=== PATIENT | female | born 1980 | race Hispanic/Latino ===

== ENCOUNTER 2020-03-15 05:20 | Outpatient (CLI) | payer OTHER, SELFPAY ==
[2020-03-15 16:46] LABS: Hemoglobin 13.5 g/dL (12.0-16.0); Mean Corpuscular HGB CONC 34.2 g/dL (32.0-36.0); Mean Corpuscular Hemoglobin 32.5 pg (27.0-31.0); Mean Corpuscular Volume 95.1 fL (78.0-98.0); Mean Platelet Volume 6.8 fL (7.4-10.4); Platelet Count 356 thou/uL (130-400); RBC Distribution Width 11.7 % (11.5-14.5); Red Blood Cell (RBC) Count 4.15 mill/uL (4.20-5.40); White Blood Cell (WBC) Count 6.4 thou/uL (4.8-10.8)
[2020-03-15 17:01] LABS: BHCG - Serum Negative (NEGATIVE); Pregs Control Background? CLEAR/WHITE (CLR/WHITE); Pregs Control Bar Appear? YES (CONTROL BAR)
[2020-03-16 12:36] LABS: SARS-CoV-2 MS2 Positive; SARS-CoV-2 N Gene Negative; SARS-CoV-2 S Gene Negative; SARS-CoV-2 orf1ab Negative
== END 2020-03-15 05:21 | disposition home or self-care (01) ==
LOC: LABBT 05:20
PROVIDERS: ATTEND Obstetrics & Gynecology
DX: Z01.812 Encounter for preprocedural laboratory examination (principal); Z11.59 Encounter for screening for other viral diseases; D21.9 Benign neoplasm of connective and other soft tissue, unspecified; N92.0 Excessive and frequent menstruation with regular cycle; D64.9 Anemia, unspecified
CPT/HCPCS: 84703; 85027; 86850; 86900; 86901; 87635; U0003

== ENCOUNTER 2020-03-19 10:08 | Day surgery (SDC) | payer OTHER ==
[2020-03-14 11:33] VITALS: BMI 35.2
[2020-03-19] MEDS ORDERED: Famotidine/PF 20 mg/2ml Vial ONE (10:34)
[2020-03-19] MEDS ORDERED: Gabapentin 300 MG CAP ONE (10:34)
[2020-03-19] MEDS ORDERED: CeleCOXIB 100 MG CAP ONE (10:34)
[2020-03-19] MEDS ORDERED: Lidocaine 1% w/Epinephrine 1:100K 20 ML VIAL ONE (10:51)
[2020-03-19] MEDS ORDERED: Bupivacaine PF 0.5% 30 ML VIAL ONE (10:51)
[2020-03-19] MEDS ORDERED: Fentanyl 250 MCG/5 ML VIAL ONE (11:50)
[2020-03-19] MEDS ORDERED: Midazolam HCl 2 mg/2 ml Vial ONE ×2 (11:50→12:06)
[2020-03-19] MEDS ORDERED: PROPOFOL 200 MG/20 ML VIAL ONE (13:17)
[2020-03-19] MEDS ORDERED: Ondansetron PF 4 MG/2 ML Vial ONE (13:17)
[2020-03-19] MEDS ORDERED: PHENYLEPHRINE-NS 100 MCG/ML 10 ML SYRINGE ONE (13:17)
[2020-03-19] MEDS ORDERED: Rocuronium Bromide 10 MG/ML (10ML VIAL) ONE (13:17)
[2020-03-19] MEDS ORDERED: Lidocaine 1% PF 5 ML VIAL ONE (13:17)
[2020-03-19] MEDS ORDERED: Glycopyrrolate 0.2 MG/ML 5 ML SYRINGE ONE (13:17)
[2020-03-19] MEDS ORDERED: Dexamethasone 20 MG/5 ML VIAL ONE (13:17)
[2020-03-19] MEDS ORDERED: Ketorolac Tromethamine 30 MG/ML VIAL ONE (13:17)
[2020-03-19] MEDS ORDERED: Ondansetron PF 4 MG/2 ML Vial IVP PRN (14:12)
[2020-03-19] MEDS ORDERED: Simethicone Chewable 80 MG TAB PO PRN (14:12)
[2020-03-19] MEDS ORDERED: diphenhydrAMINE 25 MG CAP PO PRN (14:12)
[2020-03-19] MEDS ORDERED: traMADol HCl 50 MG TAB PO PRN (14:12)
[2020-03-19] MEDS ORDERED: HYDROcodone/Acetaminophen 5/325 mg Tablet PO PRN (14:12)
[2020-03-19] MEDS ORDERED: Morphine 4 MG/ML VIAL SLOW IVP PRN (14:12)
[2020-03-19] MEDS ORDERED: Zolpidem Tartrate 5 MG TAB PO PRN (14:12)
[2020-03-19] MEDS ORDERED: Acetaminophen 325 MG TAB PO PRN (14:12)
[2020-03-19] MEDS ORDERED: Promethazine HCl 25 MG/ML VIAL IM PRN ×2 (14:12→14:25)
[2020-03-19] MEDS ORDERED: Promethazine HCl 25 MG/ML VIAL SLOW IVP PRN (14:25)
[2020-03-19] MEDS ORDERED: Ondansetron HCl/PF 4 MG/2 ML Vial IVP PRN (14:25)
[2020-03-19] MEDS ORDERED: Fentanyl 100 MCG/2 ML VIAL ONE (14:39)
--- NOTE | 2020-03-19 15:44 | OP ---
DATE OF PROCEDURE: 03/19/2020 PREOPERATIVE DIAGNOSES: 1. Menorrhagia. 2. Dysmenorrhea. 3. Fibroid uterus. POSTOPERATIVE DIAGNOSES: 1. Menorrhagia. 2. Dysmenorrhea. 3. Fibroid uterus. PROCEDURES PERFORMED: Robotic-assisted total laparoscopic hysterectomy and bilateral salpingectomy. [employer]: Mary Mckeon PA-C ANESTHESIA: GETA. ESTIMATED BLOOD LOSS: 50 mL. COMPLICATIONS: None. OPERATIVE FINDINGS: 1. Central obesity. 2. Large fibroid uterus. 3. Normal-appearing fallopian tube segments. 4. Normal-appearing ovaries bilaterally. PROCEDURE IN DETAIL: The patient was taken back to the OR with IV fluids running. Once she was in the OR, she was placed in dorsal supine position and anesthesia was obtained. Once the patient was asleep, her arms were tucked at her side and her legs were placed in low dorsal lithotomy position. The abdomen and vagina were prepped and draped in normal fashion for gynecologic laparoscopy. Surgeons were gowned and gloved. Gibbons catheter was placed into the bladder and drained and a Bernice syringe was placed at the tip of Gibbons catheter for bladder manipulation if needed during the case. An operative speculum was placed into the vagina. The cervix was grasped at the anterior lip with a single-tooth tenaculum and the cervix was serially dilated to allow for passage of a uterine sound. The uterus sounded to approximately 9 cm. A BARBARA-Na manipulator was then assembled with an 8-cm tip and a 4-cm cup and placed into the uterus and vagina in routine fashion. The surgeon's gloves were changed and attention was then turned to the laparoscopic portion of the case. Beginning above the umbilicus, a 12-mm skin incision was made with a scalpel. Local anesthesia was injected underneath the skin. A Veress needle was placed through this incision and the abdomen was insufflated without difficulty. The Veress needle was then removed and a 12-mm trocar was placed through this incision. The laparoscope was placed through this trocar. The patient was placed in Trendelenburg position and the above findings were noted. Next, under direct visualization, right and left lower quadrant 8-mm trocars and a right upper quadrant 11-mm trocar were placed using similar technique under direct visualization. Next, the robotic arms were docked to the patient's bedside and the instruments were placed through the trocars under direct visualization. Beginning on the patient's left side, the left fallopian tube segment was grasped and elevated from the pelvic sidewall. It was cauterized, transected, and removed for pathologic review. The utero-ovarian ligament was identified, cauterized, and transected on the patient's left side. Ureter was identified on the patient's left side and noted to be running well away from the planned areas of dissection. The fallopian tube on the patient's right side was then cauterized, transected, and divided down towards the level of the uterine artery. Dense adhesions of the bladder over the cervix were noted on the patient's left side and attention was then turned to the contralateral side. The fallopian tube segment on the patient's right side was identified, cauterized, and transected. The ureter was identified and noted to be moving away from the planned areas of dissection on the patient's right side. Utero-ovarian ligament was cauterized and transected, allowing the right ovary to fall away to the pelvic sidewall. The round ligament on the patient's right side was cauterized, transected, and divided into anterior and posterior leaf. The uterine artery on the patient's right side was skeletonized, cauterized, and transected as well as neighboring accessory vessels. The anterior portion of the ligament was dissected down towards the level of the cervix. The bladder was backfilled and the vesicouterine fascia was dissected on the patient's right side, allowing the bladder to easily fall away from the planned colpotomy site. The bladder distended. Remainder of the bladder flap was created, moving to the contralateral side. With the bladder completely dissected away from the planned colpotomy site, attention was then turned again to the patient's left side. The left uterine artery was further skeletonized, cauterized, and transected. The colpotomy was then completed, beginning posteriorly and completed circumferentially. The uterus specimen was then retracted into the vagina. The vaginal cuff was irrigated and suctioned dry. Any areas of bleeding along the vaginal cuff were controlled with Bovie cauterization. The vaginal cuff was then sewn closed with Stratafix suture from corner to corner in a running fashion and then closed again in a 2nd running layer. After the vaginal cuff was closed, the vaginal cuff and surgical pedicles were copiously irrigated and suctioned dry. Any small areas of bleeding were controlled with Bovie cauterization. With the pressure dropped to 5 mmHg, no areas of bleeding were noted. All instruments were then removed. The counts were correct. The gas was released from the abdomen. The fascial layer at the supraumbilical site was closed with Vicryl suture. All 4 skin incisions were closed with Monocryl suture and dressed with Dermabond dressing. The vagina was inspected at the end of the case and noted to be dry with no areas of bleeding noted. The patient tolerated the procedure well. She was then extubated and transferred to the recovery room in good condition. Job ID: [id number]
[2020-03-19] MEDS: Sodium Chloride 0.9% 1,000 ML IV SCH ×2 (17:12→21:15)
[2020-03-19] MEDS: Ketorolac Tromethamine 30 MG/ML VIAL IVP SCH (17:18)
[2020-03-19] MEDS ORDERED: Atorvastatin Calcium 40 MG TAB PO SCH (21:00)
[2020-03-19] MEDS: HYDROcodone/Acetaminophen 5/325 mg Tablet PO PRN (22:19)
[2020-03-20] MEDS: Ketorolac Tromethamine 30 MG/ML VIAL IVP SCH (00:22)
[2020-03-20] MEDS: Docusate 100 MG CAP PO SCH ×2 (00:45→08:21)
[2020-03-20 05:47] LABS: Hemoglobin 12.5 g/dL (12.0-16.0); Mean Corpuscular HGB CONC 32.8 g/dL (32.0-36.0); Mean Corpuscular Hemoglobin 30.8 pg (27.0-31.0); Mean Corpuscular Volume 93.8 fL (78.0-98.0); Mean Platelet Volume 6.5 fL (7.4-10.4); Platelet Count 367 thou/uL (130-400); RBC Distribution Width 11.9 % (11.5-14.5); Red Blood Cell (RBC) Count 4.08 mill/uL (4.20-5.40); White Blood Cell (WBC) Count 12.5 thou/uL (4.8-10.8)
[2020-03-20] MEDS ORDERED: Levothyroxine Sodium 100 MCG TAB PO SCH (06:00)
[2020-03-20] MEDS ORDERED: Ibuprofen 800 MG TAB PO SCH (06:00)
[2020-03-20] MEDS: HYDROcodone/Acetaminophen 5/325 mg Tablet PO PRN (06:41)
[2020-03-20] MEDS: Sodium Chloride 0.9% 1,000 ML IV SCH (06:43)
--- NOTE | 2020-03-20 10:32 | PDOC.EVN ---
Event Note - Event Note Event Note: POD1 Doing well, ambulating, kari PO diet, pain controlled, no bleeding VS WNL NAD Nondistended abdomen, inc CDI x 4 Jaclyn dry A/P: POD 1 doing well, plan for DC home.
[2020-03-20 11:48] VITALS: BP 106/57; TEMP 98.6
== END 2020-03-20 12:20 | disposition home or self-care (01) ==
LOC: SDC 10:08 → 3SW 15:45 → SDC 03-20 12:20
PROVIDERS: ATTEND Obstetrics & Gynecology
PROC: 0UT94ZZ Resection of Uterus, Percutaneous Endoscopic Approach (ICD-10-PCS; principal; 2020-03-19)
PROC: 0UT74ZZ Resection of Bilateral Fallopian Tubes, Percutaneous Endoscopic Approach (ICD-10-PCS; principal; 2020-03-19)
DX: D25.9 Leiomyoma of uterus, unspecified (principal); N72 Inflammatory disease of cervix uteri; N84.0 Polyp of corpus uteri; N83.8 Other noninflammatory disorders of ovary, fallopian tube and broad ligament; N80.9 Endometriosis, unspecified; D64.9 Anemia, unspecified; E03.9 Hypothyroidism, unspecified; E78.00 Pure hypercholesterolemia, unspecified; E66.9 Obesity, unspecified; Z68.35 Body mass index [BMI] 35.0-35.9, adult; Z79.899 Other long term (current) drug therapy
CPT/HCPCS: 36415; 85027; 88307; J0690; J1100; J1885; J2250; J2405; J2704; J3010; S0020; S0028